=== PATIENT | female | born 1980 | race Caucasian/White ===

== ENCOUNTER 2021-07-24 01:05 | Emergency (ER) | payer OTHER ==
[~2021-07-24] VITALS: Ht 182.9 cm; Wt 104.3 kg
[2021-07-24] MEDS ORDERED: SYNTHROID125 MC1 PO (01:34)
[2021-07-24] MEDS ORDERED: [UNRECOGNIZED DRUG - REMARK] (01:34)
[2021-07-24 02:48] LABS: ABSOLUTE LYMPHOCYTES 0.5 thou/uL (0.8-5.3); ABSOLUTE MONOCYTES 0.3 thou/uL (0.0-1.2); ABSOLUTE NEUTROPHILS 3.4 thou/uL (1.6-8.1); BASOPHILS 0.5 %; EOSINOPHILS 0.1 %; HEMATOCRIT 33.8 % (37.0-47.0); HEMOGLOBIN 10.2 gm/dL (12.0-15.0); LYMPHOCYTES 12.6 %; MCH 19.2 pg (26.0-34.0); MCHC 30.1 g/dL (28.0-37.0); MCV 63.8 fL (80.0-100.0); MONOCYTES 6.8 %; MPV 8.4 fl. (7.2-11.1); NUCLEATED RBCS 0 /100WBC; PLATELET COUNT* 339 thou/uL (150-400); RBC 5.29 mil/uL (4.20-5.00); RDW-CV 18.9 % (10.5-14.5); WBC 4.2 thou/uL (4.0-11.0)
[2021-07-24 02:51] LABS: CALCIUM 6.9 mg/dL (8.5-10.1); CREATININE 0.9 mg/dL (0.6-1.3); POTASSIUM 3.7 mmol/L (3.5-5.1)
[2021-07-24] MEDS ORDERED: ZOFRAN ODT4 MG PO (03:58)
[2021-07-24] MEDS ORDERED: PROAIR HFA8.5 GM INH (03:58)
[2021-07-24 04:28] VITALS: BP 115/64
[2021-07-24 06:30] LABS: ANISOCYTOSIS 2+; HYPOCHROMASIA 3+; MICROCYTES 2+
== END 2021-07-24 04:28 | disposition home or self-care (01) ==
LOC: M.ERS 01:05
PROVIDERS: Emergency Medicine
DX: U07.1 COVID-19 (principal); Z90.89 Acquired absence of other organs; Z90.49 Acquired absence of other specified parts of digestive tract; Z79.899 Other long term (current) drug therapy; Z88.0 Allergy status to penicillin